=== PATIENT | female | born 1945 | race Caucasian/White ===

== ENCOUNTER → 2016-11-08 | Outpatient (CLI) | payer MEDICARE ==
[~2016-11-08] MED LIST: ASPI81TA85 PO; CALC600T21 PO; CHEL50TA PO; CO Q PO; FISH1000 PO; LEVO150T7 PO; LIVA2TAB PO; LOSA25TA8 PO; MAGN500C PO; MATURE MULTIVITAMIN PO; METF500T PO; NEUR300C PO; OSTETAB3 PO; PANT40TA2 PO; SPIR25TA2 PO; VICT18IN SC; VITA100T20 PO; VITA500046 PO; VITATAB11 PO
--- NOTE | 2016-11-08 13:26 | REP ---
BILATERAL MAMMOGRAM: Clinical history: Breast cancer maternal aunt. Bilateral MLO and CC views of the breasts are performed. New tiny calcifications are seen in the inner left breast. Magnification views are recommended to further evaluate. There are bilateral intramammary lymph nodes which are stable with no new mass or architectural distortion. IMPRESSION: ACR 0 incomplete. New tiny calcifications medial left breast. Recommend magnification views to further evaluate. BI-RADS/ACR category 0 mammogram. Incomplete. Additional imaging and/or prior images are needed before a final assessment can be assigned. This mammogram was interpreted with the aid of an FDA-approved computer-aided detection system. The patient states she/he had a clinical breast exam in 07/2016. The patient letter being requested is M0.
== END ==
LOC: M WHC 11:05
PROVIDERS: ATTEND Obstetrics & Gynecology
DX: Z12.31 Encounter for screening mammogram for malignant neoplasm of breast (principal); R92.1 Mammographic calcification found on diagnostic imaging of breast

== ENCOUNTER → 2016-11-18 | Outpatient (CLI) | payer MEDICARE ==
--- NOTE | 2016-11-18 13:35 | REP ---
DIGITAL DIAGNOSTIC UNILATERAL LEFT BREAST MAMMOGRAPHY WITH CAD: HISTORY: Screening mammography from November 08, 2016 was BIRADS category 0 for possible microcalcifications projecting inferiorly and medially. Diagnostic imaging was recommended. Comparison is also made with prior mammography from November 05, 2015 and October 16, 2014. MAMMOGRAPHIC FINDINGS: Magnified focal spot compression CC, MLO, and true MLO views of the left breast confirm the presence of a tight grouping of heterogeneous polymorphic microcalcifications in the medial aspect of the left breast just above the plane of the nipple in the upper outer quadrant. This is a change from prior mammography that must be considered somewhat suspicious. IMPRESSION: BIRADS category 4 suspicious left breast imaging. Microcalcific grouping in the superomedial quadrant left breast. Recommend stereotactic needle biopsy. B-RADS/ACR category 4 mammogram. Suspicious abnormality - biopsy should be considered. Usually requires biopsy. This mammogram was interpreted with the aid of an FDA-approved computer-aided detection system. The patient states she/he had a clinical breast exam in July 25, 2016 The patient letter being requested is M4. Signed by William Kinsey MD 11/18/2016 05:37 P
== END ==
LOC: M RAD 10:02
PROVIDERS: ATTEND Obstetrics & Gynecology
DX: R92.0 Mammographic microcalcification found on diagnostic imaging of breast (principal)

== ENCOUNTER → 2017-10-04 | Outpatient (CLI) | payer MEDICARE | LOC: M WUC 14:07 | DX: M16.11 Unilateral primary osteoarthritis, right hip (principal); M25.551 Pain in right hip | CPT/HCPCS: 73502 ==

== ENCOUNTER → 2018-12-06 | Outpatient (CLI) | payer MEDICARE ==
[~2018-12-06] MED LIST changes: -CALC600T21 PO; +CALC600T60 PO; +LOSA25TA14 PO; -LOSA25TA8 PO; -METF500T PO; +METF500T13 PO; -PANT40TA2 PO; +PANT40TA3 PO; +SPIR-10 PO; -SPIR25TA2 PO; -VITA100T20 PO; +VITA100T51 PO
--- NOTE | 2018-12-06 14:29 | REP ---
Clinical: Pain. Technique: AP, lateral, bilateral oblique views of the left ankle. Comparison: 02/28/2013 Findings: Postsurgical changes involving the talocalcaneal joint with orthopedic hardware noted. Mild age-related degenerative changes include areas of subchondral sclerosis and minimal cortical irregularity/spurring. The chronic appearing calcifications in the distal Achilles tendon noted. No acute fracture or dislocation. Overlying soft tissue swelling stable compared to 2012. Impression: Postsurgical and generalized age-related degenerative changes. No acute fracture or dislocation. Electronically Signed by Grady Diaz MD 12/06/2018 02:22 P
== END ==
LOC: M WUC 12:52
PROVIDERS: ATTEND Physician Assistant
DX: M85.872 Other specified disorders of bone density and structure, left ankle and foot (principal); Z96.7 Presence of other bone and tendon implants

== ENCOUNTER → 2019-01-02 | Outpatient (CLI) | payer MEDICARE ==
[~2019-01-02] MED LIST changes: +B COTAB3 PO; +CENT1TAB9 PO; +CHOL50002 PO; +COQ-100C5 PO; +MCTOIL FT; +RA M500C PO
[2019-01-02 17:00] LABS: PERCENT SATURATION 25.1 % (13.2-45.0)
[2019-01-02 18:03] LABS: HEMOGLOBIN A1c 6.6 %
== END ==
LOC: M WUC 15:04
PROVIDERS: ATTEND Orthopaedic Surgery
DX: Z01.818 Encounter for other preprocedural examination (principal); M25.559 Pain in unspecified hip; D63.8 Anemia in other chronic diseases classified elsewhere; M16.9 Osteoarthritis of hip, unspecified

== ENCOUNTER 2019-01-08 09:25 | Day surgery (SDC) | payer MEDICARE ==
[~2019-01-08] VITALS: Ht 165.1 cm; Wt 110.7 kg
[2019-01-08] MEDS ORDERED: LIDOCAINE 2% INJ 100 MG/5 ML SDV (FOR ANES.) As Ordered ONE (09:52)
[2019-01-08] MEDS ORDERED: PROPOFOL 200 MG/20 ML VIAL As Ordered ONE (09:52)
[2019-01-08] MEDS ORDERED: GLYCOPYRROLATE INJ 0.2 MG/ML 2 ML VIAL As Ordered ONE (09:54)
[2019-01-08] MEDS ORDERED: NS 1,000 ML IV ONE (10:00)
--- NOTE | 2019-01-08 11:23 | ROOR ---
Patient Name: Melva Nowak Procedure Date: 01/08/2019 10:56 AM Date of : 1945 Age: 73 Room: [id number] Gender: Female Note Status: Finalized Procedure: Colonoscopy Indications: High risk colon cancer surveillance: Personal history of colonic polyps, Last colonoscopy: November 2015 Providers: Kaiden HEREDIA MD Referring MD: KELSEY CORDOBA MD Requesting Provider: Medicines: Monitored Anesthesia Care Complications: No immediate complications. Procedure: Pre-Anesthesia Assessment: - The heart rate, respiratory rate, oxygen saturations, blood pressure, adequacy of pulmonary ventilation, and response to care were monitored throughout the procedure. The Colonoscope was introduced through the anus and advanced to the terminal ileum, with identification of the appendiceal orifice and IC valve. The colonoscopy was performed without difficulty. The patient tolerated the procedure well. The quality of the bowel preparation was adequate. Findings: The perianal and digital rectal examinations were normal. Two sessile polyps were found in the hepatic flexure and cecum. The polyps were diminutive in size. These polyps were removed with a cold snare. Resection and retrieval were complete. Multiple medium-mouthed diverticula were found in the sigmoid colon. Internal hemorrhoids were found during retroflexion. The hemorrhoids were small. The exam was otherwise without abnormality on direct and retroflexion views. Impression: - Two diminutive polyps at the hepatic flexure and in the cecum, removed with a cold snare. Resected and retrieved. - Moderate diverticulosis in the sigmoid colon. - Small Internal hemorrhoids. - The examination was otherwise normal on direct and retroflexion views. Recommendation: - Repeat colonoscopy in 5 years for surveillance based on personal history of previous adenomatous polyps. Kaiden Heredia MD Kaiden HEREDIA MD 01/08/2019 11:22:50 AM Electronically signed by Kaiden HEREDIA MD Number of Addenda: 0 Note Initiated On: 01/08/2019 10:56 AM Estimated Blood Loss: Estimated blood loss: none.
[2019-01-08 11:48] VITALS: BP 117/72
== END 2019-01-08 11:50 | disposition home or self-care (01) ==
LOC: M OPP 09:25
PROVIDERS: ATTEND Internal Medicine Gastroenterology
DX: K63.5 Polyp of colon (principal); K57.30 Diverticulosis of large intestine without perforation or abscess without bleeding; K64.8 Other hemorrhoids; Z86.010 Personal history of colon polyps

== ENCOUNTER → 2022-02-17 | Outpatient (CLI) | payer MEDICARE ==
[~2022-02-17] MED LIST changes: -ASPI81TA85 PO; +ASPI81TA86 PO; +LOSA25TA13 PO; -LOSA25TA14 PO; +PANT40TA29 PO; -PANT40TA3 PO
== END ==
LOC: M WHC 08:58
PROVIDERS: ATTEND Family Medicine
DX: Z01.411 Encounter for gynecological examination (general) (routine) with abnormal findings (principal); R10.2 Pelvic and perineal pain; Z53.9 Procedure and treatment not carried out, unspecified reason

== ENCOUNTER → 2022-03-03 | Outpatient (CLI) | payer MEDICARE | LOC: M WHC 09:30 | PROVIDERS: ATTEND Family Medicine | DX: Z01.411 Encounter for gynecological examination (general) (routine) with abnormal findings (principal); R10.2 Pelvic and perineal pain; R93.89 Abnormal findings on diagnostic imaging of other specified body structures ==

== ENCOUNTER → 2022-03-23 | Outpatient (CLI) | payer MEDICARE ==
[~2022-03-23] MED LIST changes: +GASTROGRAFIN SOLUTION 30ML (Q9963) As Ordered ONE; +ISOVUE-370 76% 100ML VIAL As Ordered ONE
== END ==
LOC: M RAD 08:19
PROVIDERS: ATTEND Family Medicine
DX: K76.0 Fatty (change of) liver, not elsewhere classified (principal); N28.1 Cyst of kidney, acquired; Z96.641 Presence of right artificial hip joint; R19.04 Left lower quadrant abdominal swelling, mass and lump; R10.2 Pelvic and perineal pain
CPT/HCPCS: 74177; Q9963; Q9967

== ENCOUNTER → 2022-08-18 | Outpatient (CLI) | payer MEDICARE ==
[~2022-08-18] MED LIST changes: -GASTROGRAFIN SOLUTION 30ML (Q9963) As Ordered ONE; -ISOVUE-370 76% 100ML VIAL As Ordered ONE
[2022-08-18 17:15] LABS: THYROID STIMULATING HORMONE 2.639 uIU/ML (0.55-4.78)
[2022-08-18 17:29] LABS: ALBUMIN 3.9 G/DL (3.2-5.2); ALKALINE PHOSPHATASE 51 U/L (46-116); ALT/SGPT 42 U/L (7.0-40); AST/SGOT 32 U/L (<34); BILIRUBIN,TOTAL 0.7 MG/DL (0.3-1.2); BLOOD UREA NITROGEN 14 MG/DL (9-23); CALCIUM LEVEL 9.6 MG/DL (8.3-10.6); CARBON DIOXIDE LEVEL 30 MMOL/L (20-31); CHLORIDE LEVEL 102 MMOL/L (98-107); CHOLESTEROL LEVEL 112 MG/DL (<200); CREATININE FOR GFR 0.58 MG/DL (0.55-1.30); GLOMERULAR FILTRATION RATE > 60.0 (>39); GLUCOSE, FASTING 122 MG/DL (74-106); HDL CHOLESTEROL 50.7 MG/DL (>40); LDL CHOLESTEROL 32.7 MG/DL (<100); NON-HDL-C 61 MG/DL; SODIUM LEVEL 140 MMOL/L (136-145); TOTAL PROTEIN 6.9 G/DL (5.7-8.2); TRIGLYCERIDES LEVEL 143 MG/DL (<150)
[2022-08-18 17:52] LABS: HEMOGLOBIN A1c 7.3 % (4.0-6.0)
== END ==
LOC: M WUC 14:21
PROVIDERS: ATTEND Internal Medicine
DX: E11.9 Type 2 diabetes mellitus without complications (principal); E78.5 Hyperlipidemia, unspecified; I10 Essential (primary) hypertension

== ENCOUNTER → 2023-08-11 | Outpatient (CLI) | payer MEDICARE | LOC: M WUC 11:42 | PROVIDERS: ATTEND Physician Assistant | DX: R05.1 Acute cough (principal) ==

== ENCOUNTER → 2024-02-10 | Outpatient (REF) | payer MEDICARE ==
[2024-02-10 20:12] LABS: ALBUMIN 4.2 G/DL (3.2-5.2); ALKALINE PHOSPHATASE 54 U/L (46-116); ALT/SGPT 44 U/L (7.0-40); AST/SGOT 31 U/L (<34); BILIRUBIN,TOTAL 0.7 MG/DL (0.3-1.2); BLOOD UREA NITROGEN 16 MG/DL (9-23); CALCIUM LEVEL 10.2 MG/DL (8.3-10.6); CARBON DIOXIDE LEVEL 28 MMOL/L (20-31); CHLORIDE LEVEL 105 MMOL/L (98-107); CHOLESTEROL LEVEL 130 MG/DL (<200); CHOLESTEROL RISK RATIO 2.47 (<5); GLOMERULAR FILTRATION RATE > 60.0 (>39); GLUCOSE, FASTING 103 MG/DL (74-106); HDL CHOLESTEROL 52.5 MG/DL (>40); LDL CHOLESTEROL 48.1 MG/DL (<100); NON-HDL-C 77.5 MG/DL; SODIUM LEVEL 142 MMOL/L (136-145); THYROID STIMULATING HORMONE 2.244 uIU/ML (0.55-4.78); TOTAL PROTEIN 7.1 G/DL (5.7-8.2); TRIGLYCERIDES LEVEL 147 MG/DL (<150)
[2024-02-10 22:58] LABS: HEMOGLOBIN A1c 6.8 % (4.0-6.0)
== END ==
LOC: M LABWUC 17:06
PROVIDERS: ATTEND Internal Medicine
DX: E03.9 Hypothyroidism, unspecified (principal); E78.5 Hyperlipidemia, unspecified; E11.9 Type 2 diabetes mellitus without complications

== ENCOUNTER 2024-05-19 12:14 | Emergency (ER) | payer MEDICARE ==
[~2024-05-19] VITALS: Ht 162.6 cm; Wt 109.1 kg
[2024-05-19] MEDS ORDERED: HYDR12CA (12:28)
[2024-05-19] MEDS ORDERED: GLIP5TAB17 (12:28)
[2024-05-19] MEDS ORDERED: ROSU5TAB40 (12:28)
[2024-05-19] MEDS ORDERED: LOSA100T46 (12:28)
[2024-05-19] MEDS ORDERED: METF850T4 (12:28)
[2024-05-19] MEDS ORDERED: CIPR500T39 (12:28)
[2024-05-19 13:42] LABS: BASO # 0.1 10^3/uL (0.0-0.2); BASO % 0.8 % (0.0-1.0); EOS # 0.4 10^3/uL (0.0-0.5); EOS % 3.7 % (0.0-3.0); HEMOGLOBIN 14.2 g/dl (12.0-15.5); LYMPH # 2.5 10^3/uL (1.5-5.0); LYMPH % 25.9 % (24.0-44.0); MEAN CORPUSCULAR HEMOGLOBIN 30.5 pg (27.0-33.0); MEAN CORPUSCULAR VOLUME 92.3 fl (80.0-96.0); MONO # 0.9 10^3/uL (0.0-0.8); MONO % 9.2 % (2.0-8.0); NEUTROPHILS # 5.9 10^3/uL (1.5-8.5); PLATELET COUNT, AUTOMATED 291 10^3/uL (150-450); RED BLOOD COUNT 4.66 10^6/uL (4.00-5.40); WHITE BLOOD COUNT 9.8 10^3/uL (4.0-10.0)
[2024-05-19 14:01] LABS: LIPASE 28 U/L (12-53)
[2024-05-19 14:03] LABS: ALBUMIN 3.9 G/DL (3.2-5.2); ALKALINE PHOSPHATASE 54 U/L (46-116); ALT/SGPT 32 U/L (7.0-40); AST/SGOT 26 U/L (<34); BILIRUBIN,DIRECT 0.2 MG/DL (<0.4); BILIRUBIN,TOTAL 0.6 MG/DL (0.3-1.2); BLOOD UREA NITROGEN 21 MG/DL (9-23); CALCIUM LEVEL 9.8 MG/DL (8.3-10.6); CARBON DIOXIDE LEVEL 28 MMOL/L (20-31); CHLORIDE LEVEL 105 MMOL/L (98-107); CREATININE FOR GFR 0.68 MG/DL (0.55-1.30); GLOMERULAR FILTRATION RATE > 60.0 (>39); GLUCOSE, FASTING 123 MG/DL (74-106); POTASSIUM SERUM 4.3 MMOL/L (3.5-5.1); SODIUM LEVEL 140 MMOL/L (136-145)
[2024-05-19] MEDS ORDERED: ISOVUE-370 76% 100ML VIAL As Ordered ONE (14:04)
[2024-05-19] MEDS: ACETAMINOPHEN *IV* 1,000 MG in IV 1 EA IV ONE (14:06)
[2024-05-19] MEDS: NS 1,000 ML IV ONE (14:08)
[2024-05-19 15:14] VITALS: BP 107/53; TEMP 98; O2SAT 98
[2024-05-19] MEDS: TAMSULOSIN 0.4 MG CAP PO ONE (15:21)
[2024-05-19] MEDS ORDERED: PERC5TAB12 PO (15:23)
[2024-05-19] MEDS ORDERED: FLOM0.4C39 PO (15:23)
[2024-05-19] MEDS ORDERED: CIPR-249 PO (15:25)
[2024-05-19] MEDS: CIPROFLOXACIN 500MG TABLET PO ONE (15:40)
== END 2024-05-19 15:47 | disposition home or self-care (01) ==
LOC: M ED 12:14
DX: N20.1 Calculus of ureter (principal); E11.9 Type 2 diabetes mellitus without complications; E78.5 Hyperlipidemia, unspecified; I10 Essential (primary) hypertension; G47.33 Obstructive sleep apnea (adult) (pediatric); Z79.82 Long term (current) use of aspirin; Z79.2 Long term (current) use of antibiotics; Z79.4 Long term (current) use of insulin; Z79.811 Long term (current) use of aromatase inhibitors; Z79.899 Other long term (current) drug therapy
CPT/HCPCS: 74177; 80048; 80076; 81001; 83690; 85025; 87088; 87186; 96365; 96366; 99283; J0131; Q9967

== ENCOUNTER 2024-10-08 11:58 | Day surgery (SDC) | payer MEDICARE ==
[~2024-10-08] VITALS: Ht 162.6 cm; Wt 106.6 kg
[~2024-10-08 11:58] MED LIST changes: +AMOX500T PO; +BAYE81TA10 PO; +CHEL50TA3 PO; +CHOL100012 PO; +CIPR-249 PO; +CIPR500T39; +FLOM0.4C39 PO; +GLIP5TAB17 PO; +GLUC1TAB58 PO; +HYDR12CA PO; +JARD1TAB PO; +LEVO112T2 PO; +LIDOCAINE 2% 100MG/5ML SDV (FOR ANES.) As Ordered ONE; +LOSA100T46 PO; +METF850T4 PO; +PERC5TAB12 PO; +ROSU5TAB49 PO; +THERTAB52 PO; +VICT18IN2 SC; +[UNRECOGNIZED DRUG - OTHER] PO; +propofoL 200 MG/20 ML VIAL As Ordered ONE
[2024-10-08] MEDS ORDERED: GLYCOPYRROLATE INJ 0.2 MG/ML 2 ML VIAL As Ordered ONE (14:04)
[2024-10-08 14:20] VITALS: TEMP 97.6
[2024-10-08 14:50] VITALS: BP 117/64; O2SAT 95
== END 2024-10-08 15:00 | disposition home or self-care (01) ==
LOC: M OPP 11:58
PROVIDERS: ATTEND Internal Medicine Gastroenterology
DX: D12.3 Benign neoplasm of transverse colon (principal); K57.30 Diverticulosis of large intestine without perforation or abscess without bleeding; K64.8 Other hemorrhoids; Z86.0100 Personal history of colon polyps, unspecified; R13.12 Dysphagia, oropharyngeal phase; R13.11 Dysphagia, oral phase; G47.30 Sleep apnea, unspecified; Z79.2 Long term (current) use of antibiotics; Z79.84 Long term (current) use of oral hypoglycemic drugs; Z79.82 Long term (current) use of aspirin; Z79.4 Long term (current) use of insulin; Z79.899 Other long term (current) drug therapy
CPT/HCPCS: 43235; 43450; 45385; 88305; J1596

== ENCOUNTER → 2025-05-24 | Outpatient (CLI) | payer MEDICARE ==
[~2025-05-24] MED LIST changes: -FLOM0.4C39 PO; +HYDR12.510 PO; -HYDR12CA PO; -LIDOCAINE 2% 100MG/5ML SDV (FOR ANES.) As Ordered ONE; +TAMS-18 PO; -propofoL 200 MG/20 ML VIAL As Ordered ONE
[2025-05-24 18:56] LABS: ESTIMATED AVERAGE GLUCOSE 126.0 MG/DL (60-110)
[2025-05-24 19:14] LABS: ALT/SGPT 28 U/L (7.0-40); AST/SGOT 20 U/L (<34); CALCIUM LEVEL 10.1 MG/DL (8.3-10.6); CARBON DIOXIDE LEVEL 28 MMOL/L (20-31); CHLORIDE LEVEL 103 MMOL/L (98-107); CHOLESTEROL LEVEL 125 MG/DL (<200); CHOLESTEROL RISK RATIO 2.24 (<5); CREATININE FOR GFR 0.62 MG/DL (0.55-1.30); GLOMERULAR FILTRATION RATE > 90.0 (>39); LDL CHOLESTEROL 40.4 MG/DL (<100); NON-HDL-C 69.2 MG/DL; POTASSIUM SERUM 3.9 MMOL/L (3.5-5.1); SODIUM LEVEL 141 MMOL/L (136-145); TRIGLYCERIDES LEVEL 144 MG/DL (<150)
== END ==
LOC: M WUC 13:16
PROVIDERS: ATTEND Internal Medicine
DX: E78.5 Hyperlipidemia, unspecified (principal); E03.9 Hypothyroidism, unspecified; E11.9 Type 2 diabetes mellitus without complications